=== PATIENT | male | born 1950 | race Caucasian/White ===

== ENCOUNTER → 2017-02-09 | Outpatient (CLI) | payer MEDICARE ==
[~2017-02-09] MED LIST: AMLO5TAB2 PO; ASPI-496 PO; ASPIRIN PO; BP MEDS PO
== END | disposition home or self-care (01) ==
LOC: CFH 11:59
PROVIDERS: ATTEND Physician Assistant Medical
DX: R06.02 Shortness of breath (principal)
CPT/HCPCS: 78452; 93017; A9502

== ENCOUNTER → 2017-04-11 | Outpatient (CLI) | payer MEDICARE ==
[~2017-04-11] MED LIST changes: +ATOR40TA78 PO; +CARV6.2512 PO; +CYCL-259 PO; +LISI1TAB5 PO; +METF500T4 PO; +NAPR220C2 PO; +TAMS0.4C2 PO
[2017-04-11 13:11] LABS: HEMATOCRIT 46.8 % (39.2-51.8); HEMOGLOBIN 15.8 g/dL (13.7-18.0); WHITE BLOOD COUNT 6.9 x10^3/uL (3.4-10)
[2017-04-11 13:22] LABS: BLOOD UREA NITROGEN 14 mg/dL (7-18)
== END | disposition home or self-care (01) ==
LOC: STAR 12:26
PROVIDERS: ATTEND Internal Medicine Cardiovascular Disease
DX: I42.9 Cardiomyopathy, unspecified (principal); R94.30 Abnormal result of cardiovascular function study, unspecified; I10 Essential (primary) hypertension; E78.00 Pure hypercholesterolemia, unspecified; E11.9 Type 2 diabetes mellitus without complications
CPT/HCPCS: 36415; 80048; 85025

== ENCOUNTER 2017-04-18 08:26 | Day surgery (SDC) | payer MEDICARE ==
[2017-04-11 13:16] VITALS: BP 145/94
[~2017-04-18] VITALS: Ht 190.5 cm; Wt 156.8 kg
[2017-04-18] MEDS ORDERED: SODIUM CHLORIDE 0.9% 1,000 ML IV ONE (10:07)
[2017-04-18] MEDS ORDERED: ASPIRIN 325 MG TABLET EC PO ONE (10:30)
== END 2017-04-18 16:08 | disposition home or self-care (01) ==
LOC: CVU 08:26 → CACL 16:08
PROVIDERS: ATTEND Internal Medicine Cardiovascular Disease
DX: I25.10 Atherosclerotic heart disease of native coronary artery without angina pectoris (principal); I42.9 Cardiomyopathy, unspecified; I10 Essential (primary) hypertension; E78.00 Pure hypercholesterolemia, unspecified; E11.9 Type 2 diabetes mellitus without complications; Z79.82 Long term (current) use of aspirin; Z87.891 Personal history of nicotine dependence
CPT/HCPCS: 93306; 93458; 99156; 99157; C1769; C1894; Q9967

== ENCOUNTER → 2018-03-11 | Outpatient (CLI) | payer MEDICARE ==
[~2018-03-11] MED LIST changes: -AMLO5TAB2 PO; +AMLO5TAB7 PO; +METF500T17 PO; -METF500T4 PO
== END | disposition home or self-care (01) ==
LOC: CVU 07:48
PROVIDERS: ATTEND Internal Medicine Cardiovascular Disease
DX: I08.3 Combined rheumatic disorders of mitral, aortic and tricuspid valves (principal); I10 Essential (primary) hypertension; E78.5 Hyperlipidemia, unspecified; E11.9 Type 2 diabetes mellitus without complications; Z87.891 Personal history of nicotine dependence
CPT/HCPCS: C8929; Q9957

== ENCOUNTER 2018-12-25 14:23 | Outpatient (CLI) | payer MEDICARE | END 2018-12-25 23:59 | disposition home or self-care (01) | LOC: CVU 14:23 | PROVIDERS: ATTEND Internal Medicine Cardiovascular Disease | DX: I08.0 Rheumatic disorders of both mitral and aortic valves (principal); I11.9 Hypertensive heart disease without heart failure; E78.5 Hyperlipidemia, unspecified; Z87.891 Personal history of nicotine dependence; I71.2 Thoracic aortic aneurysm, without rupture | CPT/HCPCS: 93306 ==

== ENCOUNTER → 2019-04-21 | Outpatient (CLI) | payer MEDICARE ==
[~2019-04-21] MED LIST changes: +AMLO-150 PO; -AMLO5TAB7 PO; +LISI1TAB19 PO; -LISI1TAB5 PO; +OMNIPAQUE 350 MG/ML, 100ML BOTTLE ONE
== END | disposition home or self-care (01) ==
LOC: CFH 12:59
PROVIDERS: ATTEND Internal Medicine Cardiovascular Disease
DX: I70.0 Atherosclerosis of aorta (principal); D71 Functional disorders of polymorphonuclear neutrophils; I71.2 Thoracic aortic aneurysm, without rupture; Z87.891 Personal history of nicotine dependence
CPT/HCPCS: 71275; 82565; Q9967

== ENCOUNTER 2019-05-12 11:25 | Outpatient (CLI) | payer MEDICARE ==
[~2019-05-12 11:25] MED LIST changes: -OMNIPAQUE 350 MG/ML, 100ML BOTTLE ONE
[2019-05-12] MEDS ORDERED: REGADENOSON 0.4 MG/5 ML SYRINGE ONE (11:59)
== END 2019-05-12 23:59 | disposition home or self-care (01) ==
LOC: CFH 11:25
PROVIDERS: ATTEND Internal Medicine Cardiovascular Disease
DX: I71.2 Thoracic aortic aneurysm, without rupture (principal); I25.9 Chronic ischemic heart disease, unspecified
CPT/HCPCS: 78452; 78469; 93017; J2785

== ENCOUNTER 2019-09-13 00:45 | Emergency (ER) | payer MEDICARE ==
[~2019-09-13] VITALS: Ht 193 cm; Wt 146.2 kg
[2019-09-13] MEDS ORDERED: SODIUM CHLORIDE FLUSH 10ML SYR IVF ONE (01:30)
--- NOTE | 2019-09-13 01:51 | NUR ---
PT SITTING UP ON GURNEY, MONITORS APPLIED, URINE SAMPLE SENT, IV SITE STARTED LABS DRAWN AND SENT. AWAITING CT AND LAB RESULTS
[2019-09-13 01:59] LABS: BASOPHILS # (AUTO) 0.03 x10^3/uL (0-0.1); BASOPHILS % (AUTO) 1 % (0-1); EOSINOPHILS # (AUTO) 0.23 x10^3/uL (0-0.4); EOSINOPHILS % (AUTO) 3 % (1-7); LYMPHOCYTES # (AUTO) 2.81 x10^3/uL (1-3.4); LYMPHOCYTES % (AUTO) 40 % (22-44); MD NO; MEAN CORPUSCULAR HGB CONC 33.2 g/dL (33.2-36.2); MEAN CORPUSCULAR VOLUME 93.6 fL (81-97); MEAN PLATELET VOLUME 8.1 fL (7.4-10.4); MONOCYTES % (AUTO) 9 % (2-9); NEUTROPHILS # (AUTO) 3.35 x10^3/uL (1.8-6.8); NEUTROPHILS % (AUTO) 48 % (42-75); PLATELET COUNT 231 x10^3/uL (130-400); RED BLOOD COUNT 4.44 x10^6/uL (4.38-5.82); RED CELL DISTRIBUTION WIDTH 12.7 % (9.4-14.8)
[2019-09-13 02:10] LABS: ALANINE AMINOTRANSFERASE 18 U/L (12-78); ALBUMIN 3.9 g/dL (3.4-5.0); ANION GAP 8 mmol/L (5-15); CALCIUM 9.2 mg/dL (8.5-10.1); CHLORIDE 103 mmol/L (98-107); CREATININE 1.62 mg/dL (0.7-1.3)
[2019-09-13 02:14] LABS: ALKALINE PHOSPHATASE 56 U/L (45-117); BILIRUBIN,TOTAL 1.3 mg/dL (0.2-1.0); TOTAL PROTEIN 7.7 g/dL (6.4-8.2)
[2019-09-13 02:26] LABS: MICROSCOPIC NOT IND
[2019-09-13 02:27] LABS: CULTURE INDICATED? NO
[2019-09-13] MEDS ORDERED: SODIUM CHLORIDE 0.9% 1,000ML IVBOLUS ONE (02:30)
--- NOTE | 2019-09-13 02:32 | NUR ---
PT SITTING UP ON GURNEY WATCHING TV, DAMASO DOBSON, CALL LIGHT WITHIN REACH, IV FLUIDS INFUSING. AWAITING CT RESULT
[2019-09-13 03:12] VITALS: BP 120/73
[2019-09-13] MEDS ORDERED: OMNIPAQUE 350 MG/ML, 100ML BOTTLE ONE (05:41)
== END 2019-09-13 03:38 | disposition home or self-care (01) ==
LOC: ED 01:04
DX: G89.29 Other chronic pain (principal); M25.561 Pain in right knee; M79.651 Pain in right thigh; M54.5 Low back pain; M76.9 Unspecified enthesopathy, lower limb, excluding foot; R10.32 Left lower quadrant pain; I11.9 Hypertensive heart disease without heart failure; E11.9 Type 2 diabetes mellitus without complications; E78.5 Hyperlipidemia, unspecified
CPT/HCPCS: 36415; 74177; 80053; 81003; 83690; 85025; 99285; J7030; Q9967

== ENCOUNTER 2019-12-26 14:34 | Outpatient (CLI) | payer MEDICARE | END 2019-12-26 23:59 | disposition home or self-care (01) | LOC: CVU 14:34 | PROVIDERS: ATTEND Internal Medicine Cardiovascular Disease | DX: I08.0 Rheumatic disorders of both mitral and aortic valves (principal); I25.10 Atherosclerotic heart disease of native coronary artery without angina pectoris; I71.2 Thoracic aortic aneurysm, without rupture | CPT/HCPCS: 93306 ==

== ENCOUNTER 2020-05-10 14:40 | Emergency (ER) | payer MEDICARE ==
[~2020-05-10] VITALS: Ht 190.5 cm; Wt 147.9 kg
[~2020-05-10 14:40] MED LIST changes: -LISI1TAB19 PO; +LISI1TAB39 PO
[2020-05-10 15:42] LABS: BASOPHILS % (AUTO) 1 % (0-1); EOSINOPHILS % (AUTO) 2 % (1-7); LYMPHOCYTES % (AUTO) 29 % (22-44); MEAN CORPUSCULAR HEMOGLOBIN 31.6 pg (27.5-34.5); MEAN CORPUSCULAR HGB CONC 33.1 g/dL (33.2-36.2); MEAN PLATELET VOLUME 7.1 fL (7.4-10.4); MONOCYTES % (AUTO) 9 % (2-9); NEUTROPHILS % (AUTO) 59 % (42-75); PLATELET COUNT 238 x10^3/uL (130-400)
[2020-05-10 15:47] LABS: ALBUMIN 3.9 g/dL (3.4-5.0); ANION GAP 4 mmol/L (5-15); CALCIUM 9.4 mg/dL (8.5-10.1); CHLORIDE 105 mmol/L (98-107); CREATININE 1.56 mg/dL (0.7-1.3)
[2020-05-10 15:50] LABS: MD NO
--- NOTE | 2020-05-10 17:10 | NUR ---
ASSUMED CARE OF PT. FROM TASK RN FOLLOWING LUNCH. PT STATES HE FELL ON SUNDAY, "SLIPPED ON MY BUTT". STATES HE DID NOT HIT HIS HEAD. STATES PAIN 9/10 ON RIGHT SIDE OF BACK. PROVIDER AT BEDSIDE. MONITORS CONNECTED.
--- NOTE | 2020-05-10 17:13 | NUR ---
PROVIDER AT BEDSIDE. PT SITTING UP ON GURNEY C/O 9-02/20 RIGHT BACK PAIN. PROVIDER AWARE. VSS. NAD. WILL CONTINUE TO MONITOR
[2020-05-10] MEDS ORDERED: CYCLOBENZAPRINE 10 MG TABLET PO ONE (17:30)
[2020-05-10] MEDS ORDERED: OXYcodone/APAP 5/325MG TABLET PO ONE (17:30)
[2020-05-10] MEDS ORDERED: KETOROLAC 30 MG/1 ML IM ONE (17:30)
[2020-05-10] MEDS ORDERED: KETOROLAC 30 MG/1 ML ONE (17:35)
[2020-05-10] MEDS ORDERED: CYCLOBENZAPRINE 10 MG TABLET ONE (17:36)
[2020-05-10] MEDS ORDERED: OXYcodone/APAP 5/325MG TABLET ONE (17:36)
--- NOTE | 2020-05-10 17:46 | NUR ---
ORDERED MEDICATIONS ADMINISTERED. PT SITTING UP ON SIDE OF BED ATTEMPTING TO URINATE. PT ECUDATED TO CALL IF DIZZINES OR FEELING OF UNSTEADINESS. VERBALIZED UNDERSTANDING. STATES NO ADDITIONAL NEEDS AT THIS TIME
[2020-05-10 18:11] LABS: MICROSCOPIC NOT IND
--- NOTE | 2020-05-10 18:22 | NUR ---
PT RESTING ON GURNEY. STATES PAIN IMPROVING AT 7/10. WILL CONTINUE MONITOR
[2020-05-10 19:07] VITALS: BP 126/75
== END 2020-05-10 19:12 | disposition home or self-care (01) ==
LOC: ED 18:44
DX: M54.5 Low back pain (principal); I11.9 Hypertensive heart disease without heart failure; E78.5 Hyperlipidemia, unspecified
CPT/HCPCS: 36415; 72110; 80048; 81003; 82040; 85025; 96372; 99284; J1885